=== PATIENT | female | born 1995 | race Asian ===

== ENCOUNTER → 2018-11-17 21:48 | Emergency (ER) | payer OTHER ==
[2018-11-17 22:06] VITALS: BP 98/72
== END | disposition left against medical advice (07) ==
LOC: ED 21:48
DX: R06.02 Shortness of breath (principal); R20.2 Paresthesia of skin; R68.83 Chills (without fever); Z53.21 Procedure and treatment not carried out due to patient leaving prior to being seen by health care provider